=== PATIENT | female | born 1965 ===

== ENCOUNTER 2017-12-29 11:18 | Emergency (ER) | payer MEDICAID, MEDICARE, OTHER ==
--- NOTE | 2017-12-29 11:20 | ED PDOC ---
Arrival/HPI - General Time Seen by Provider: 12/29/17 11:19 Historian: Patient - History of Present Illness Narrative History of Present Illness (Text): 12/29/17 11:54 52yo female with no pmhx who present with "stabbing" upper back pain x 2days. Notes that she started having yellow productive cough 3days ago. She notes subjective fever last night. States she did not take any medication for her symptoms. No exacerbating factors. She denies chest pain, SOB, diaphoresis, sick contact, travel, Le edema, abdominal pain, nausea, vomiting, any other complaint. Past Medical History - Provider Review Nursing Documentation Reviewed: Yes Family/Social History - Physician Review Nursing Documentation Reviewed: Yes Family/Social History: Unknown Family HX Allergies/Home Meds Allergies/Adverse Reactions: Allergies No Known Allergies Allergy (Verified 12/29/17 11:43) Review of Systems - Physician Review All systems were reviewed & negative as marked: Yes - Review of Systems Constitutional: Normal Eyes: Normal ENT: Normal Respiratory: Cough Cardiovascular: Normal Gastrointestinal: Normal Genitourinary Female: Normal Musculoskeletal: Back Pain Skin: Normal Neurological: Normal Endocrine: Normal Hemo/Lymphatic: Normal Psychiatric: Normal Physical Exam Vital Signs Reviewed: Yes Vital Signs Temp Pulse Resp BP Pulse Ox 12/29/17 13:35 84 16 128/76 98 12/29/17 11:45 16 98 12/29/17 11:32 98.4 F 85 20 141/78 98 Temperature: Afebrile Blood Pressure: Normal Pulse: Regular Respiratory Rate: Normal Appearance: Positive for: Well-Appearing, Non-Toxic, Comfortable Pain Distress: None Mental Status: Positive for: Alert and Oriented X 3 - Systems Exam Head: Present: Atraumatic, Normocephalic Pupils: Present: PERRL Extroacular Muscles: Present: EOMI Conjunctiva: Present: Normal Mouth: Present: Moist Mucous Membranes Neck: Present: Normal Range of Motion Respiratory/Chest: Present: Clear to Auscultation, Good Air Exchange. No: Respiratory Distress, Accessory Muscle Use, Wheezes, Decreased Breath Sounds, Rales, Retracting, Rhonchi, Tachypneic Cardiovascular: Present: Regular Rate and Rhythm, Normal S1, S2. No: Murmurs Abdomen: No: Tenderness, Distention, Peritoneal Signs Back: No: Midline Tenderness, Paraspinal Tenderness, Pain with Leg Raise Upper Extremity: Present: Normal Inspection. No: Cyanosis, Edema Lower Extremity: Present: Normal Inspection. No: Edema Neurological: Present: GCS=15, CN II-XII Intact, Speech Normal Skin: Present: Warm, Dry, Normal Color. No: Rashes Psychiatric: Present: Alert, Oriented x 3, Normal Insight, Normal Concentration Medical Decision Making ED Course and Treatment: 12/29/17 19:35 PT presented for stated history. She was hemodynamically stable, not hypoxic and in no distress thoracic spine xray - Negative chest xray IMPRESSION: Increased-coarsened interstitial markings with few scattered peribronchial cuffing changes. Findings may represent sequela of reactive/inflammatory airway disease and/or viral illness . There may also be some mild atelectasis and or scarring changes in the left lung base as well. Result was DW the pt. she was treated with Prednisone, Zpack and antitussive for Reactive airway disease. Referred to her PMD. - RAD Interpretation Radiology Orders: 12/29/17 11:44 CHEST TWO VIEWS (PA/LAT) [RAD] Stat DORSAL (THORACIC) SPINE [RAD] Stat - Medication Orders Current Medication Orders: Discontinued Medications Azithromycin (Zithromax) 500 mg PO STAT STA PRN Reason: Protocol Stop: 12/29/17 13:24 Last Admin: 12/29/17 13:31 Dose: 500 mg Ketorolac Tromethamine (Toradol) 60 mg IM STAT STA Stop: 12/29/17 11:45 Last Admin: 12/29/17 11:59 Dose: 60 mg MAR Pain Assessment Document 12/29/17 11:59 JAY (Rec: 12/29/17 11:59 [facility] [id number] Pain Reassessment Is this a pain reassessment? Yes Presence of Pain Presence of Pain Yes Pain Scale Used Pain Scale Used Numeric Location Left, Right or Bilateral Right Upper or Lower Upper Pain Location Body Site Back Description Description Sharp Intensity of Pain at present 7 IM Administration Charges Document 12/29/17 11:59 JAY (Rec: 12/29/17 11:59 JAY [facility] [id number]) Injection Site MAR Injection Site Left Deltoid Charges for Administration # of IM Administrations 1 Prednisone (Prednisone Tab) 60 mg PO STAT ONE Stop: 12/29/17 13:27 Last Admin: 12/29/17 13:31 Dose: 60 mg Disposition/Present on Arrival - Present on Arrival Any Indicators Present on Arrival: No History of DVT/PE: No History of Uncontrolled Diabetes: No Urinary Catheter: No History of Decub. Ulcer: No History Surgical Site Infection Following: None - Disposition Have Diagnosis and Disposition been Completed?: Yes Diagnosis: Reactive airway disease, Back pain Disposition: HOME/ ROUTINE Disposition Time: 13:30 Patient Plan: Discharge Condition: STABLE Discharge Instructions (ExitCare): Upper Back Pain Additional Instructions: Follow up with your doctor Return to ED for any new or worsening symptoms Prescriptions: Albuterol HFA [Ventolin HFA 90 mcg/actuation (8 g)] 2 puff IH [id number] #1 puff Azithromycin [Zithromax] 250 mg PO DAILY #4 tab Ibuprofen [Motrin Tab] 600 mg PO Q6 #20 tab predniSONE [Prednisone] 10 mg PO DAILY #3 tab Referrals: Alyssa Gauthier MD [Primary Care Provider] - Follow up with primary Forms: [employer] (E[place]an)
[2017-12-29 11:30] VITALS: BMI 27.8
[2017-12-29 11:33] VITALS: TEMP 98.4; O2SAT 98
[2017-12-29 12:33] VITALS: RESP 16
--- NOTE | 2017-12-29 13:03 | RAD ---
HISTORY: Cough COMPARISON: No prior. TECHNIQUE: Chest PA and lateral FINDINGS: LUNGS: Increased-coarsened interstitial markings with few scattered peribronchial cuffing changes. Findings may represent sequela of reactive/inflammatory airway disease and/or viral illness . There may also be some mild atelectasis and or scarring changes in the left lung base as well. PLEURA: No significant pleural effusion identified. No pneumothorax apparent. CARDIOVASCULAR: Normal. OSSEOUS STRUCTURES: No significant abnormalities. VISUALIZED UPPER ABDOMEN: Normal. OTHER FINDINGS: None. IMPRESSION: Increased-coarsened interstitial markings with few scattered peribronchial cuffing changes. Findings may represent sequela of reactive/inflammatory airway disease and/or viral illness . There may also be some mild atelectasis and or scarring changes in the left lung base as well.
--- NOTE | 2017-12-29 13:05 | RAD ---
HISTORY: Back pain COMPARISON: Correlation made with concurrent chest radiograph FINDINGS: BONES: Alignment maintained. No evidence of acute displaced-compression fracture nor retropulsed fragments. DISC SPACES: Disc space heights maintained. SOFT TISSUES: Normal. OTHER FINDINGS: None. IMPRESSION: No evidence of acute compression fractures no retropulsed fragments. No significant degenerative spondylosis
[2017-12-29 13:36] VITALS: BP 128/76; PULSE 84
== END 2017-12-29 13:35 | disposition home or self-care (01) ==
LOC: ED 11:18
DX: M54.6 Pain in thoracic spine (principal); J45.909 Unspecified asthma, uncomplicated
CPT/HCPCS: 71046; 72070; 96372; 99282; J1885